=== PATIENT | male | born 1995 | race Caucasian/White ===

== ENCOUNTER 2022-03-04 10:03 | Emergency (ER) | payer OTHER ==
[~2022-03-04] VITALS: Ht 177.8 cm; Wt 99.8 kg
--- NOTE | 2022-03-04 10:32 | NUR ---
Dr [place] seen and examined the pt.
[2022-03-04] MEDS ORDERED: IBUP-1955 PO (11:48)
--- NOTE | 2022-03-04 11:57 | NUR ---
Patient discharged to home in stable condition. Written and verbal after care instructions given. Patient verbalizes understanding of instructions. Stressed follow up or return to ER for worsening s/s. Pt walked out of ER w/ steady gait.
[2022-03-04 11:58] VITALS: BP 132/67
== END 2022-03-04 11:59 | disposition home or self-care (01) ==
LOC: ER 10:03
DX: S76.911A Strain of unspecified muscles, fascia and tendons at thigh level, right thigh, initial encounter (principal); X50.9XXA Other and unspecified overexertion or strenuous movements or postures, initial encounter; Y92.89 Other specified places as the place of occurrence of the external cause; J45.909 Unspecified asthma, uncomplicated; M25.461 Effusion, right knee
CPT/HCPCS: A4663